=== PATIENT | male | born 2000 | race Two or more races ===

== ENCOUNTER 2022-06-23 02:38 | Emergency (ER) | payer SELFPAY ==
[~2022-06-23] VITALS: Ht 185.4 cm; Wt 74.2 kg
[2022-06-23 03:32] LABS: Albumin 4.5 g/dL (3.4-5.0); BUN/Creatinine Ratio 10.3 (10.0-20.0); Calcium 9.6 mg/dL (8.5-10.1); Potassium 3.8 mmol/L (3.5-5.1)
[2022-06-23 03:35] LABS: Bilirubin, Total 1.1 mg/dL (0.2-1.0); Total Protein 8.6 g/dL (6.4-8.2)
[2022-06-23 03:50] LABS: Eosinophils # (auto) 0 10 ^3/uL (0-0.8); Hematocrit 45.9 % (41.0-53.0); Red Cell Distribution Width 12.5 % (11.8-14.3)
[2022-06-23 03:57] LABS: Basophils # (auto) 0 10 ^3/uL (0-0.2); Basophils % (auto) 0.2 % (0.0-2.0); Eosinophils % (auto) 0.1 % (0.0-7.0); Hemoglobin 15.9 g/dL (13.5-17.5); Lymphocytes % (auto) 6.5 % (10.0-50.0); Mean Corpuscular Hgb Conc. 34.7 g/dL (32.0-36.0); Mean Corpuscular Volume 89.3 fL (80.0-100.0); Monocytes # (auto) 0.4 10 ^3/uL (0-1.3); Monocytes % (auto) 2.5 % (0.0-12.0); Neutrophils # (auto) 14.4 10 ^3/uL (1.6-8.6); Neutrophils % (auto) 90.7 % (37.0-80.0); Red Blood Cells 5.14 10^6/uL (4.5-5.90); White Blood Cell 15.9 10^3/uL (4.4-10.8)
[2022-06-23 04:22] LABS: Urine Bacteria NONE SEEN /hpf (None Seen); Urine Blood Negative /uL (Negative); Urine Mucus FEW (None Seen); Urine Specific Gravity 1.031 (1.001-1.035); Urine WBC 3 /hpf (0 - 3)
[2022-06-23] MEDS ORDERED: KETOROLAC TROMETH 60MG/2ML VIAL IM ONE (04:30)
[2022-06-23] MEDS ORDERED: ONDANSETRON ODT 4 MG TAB PO ONE (04:30)
[2022-06-23 04:40] VITALS: BP 123/82
[2022-06-23] MEDS ORDERED: SULF400T11 PO (04:56)
[2022-06-23] MEDS ORDERED: IBUP800T26 PO (04:56)
== END 2022-06-23 05:00 | disposition home or self-care (01) ==
LOC: ER 02:38
DX: R10.31 Right lower quadrant pain (principal); Z98.890 Other specified postprocedural states
CPT/HCPCS: 36415; 74176; 80053; 81001; 83690; 85025; 96372; 99285; J1885; Q0162